=== PATIENT | female | born 1970 | race Caucasian/White ===

== ENCOUNTER 2023-05-10 09:00 | Outpatient (CLI) | payer BC, SELFPAY ==
--- NOTE | 2023-05-10 09:03 | XR_ITS ---
FINAL REPORT CLINICAL HISTORY: Pain in 2nd (cyst) & 4th digit. Upcoming biopsy on 4th digit soon. FINDINGS: Right foot Three views were obtained. There is no acute fracture or dislocation. There are mild degenerative changes. Plantar calcaneal spur is identified. No soft tissue abnormality is identified. IMPRESSION: No acute process. Reviewed, Interpreted and Dictated by Inderjit Barr III, MD Transcribed by Luana Kent Authenticated and [facility]
== END 2023-05-10 23:59 ==
PROVIDERS: PCP Physician Assistant; Visit Provider Podiatrist
DX: M79.671 Pain in right foot (principal)
CPT/HCPCS: 73630

== ENCOUNTER 2023-05-18 10:41 | Day surgery (SDC) | payer BC, SELFPAY ==
[2023-05-17 13:08] VITALS: BMI 37.8
[2023-05-18] VITALS (8 sets, daily range): BP systolic 96–154; BP diastolic 58–101; PULSE 81–106; RESP 13–18; TEMP 36.3–36.9; O2SAT 92–97
[2023-05-18] MEDS: LACTATED RINGERS 1000ML 1,000 ML 25 ML IV (11:15)
--- NOTE | 2023-05-18 12:03 | EXP.ANES.CKL ---
[facility] Disclaimer: The information contained in this section may have been updated after the patient was seen, as this information can be updated by other users. Medical History Anxiety Asthma delivery delivered Depression Hypertension Hypothyroidism Surgical History H/O gastric sleeve History of cholecystectomy Family History Father Cancer Thyroid disorder Hypertension Mother Hypertension Legally blind Diabetes Histoplasmosis Grandfather Cancer Social History Smoking Status: Never smoker alcohol intake: current substance use type: denies use current occupational status: employed Travel in the last 8 weeks: None household members: spouse housing: house marital status: number of children: 3 [facility] Anesthesia Checklist Patient Identification Patient Identification: Arm Band and Verbal (Name & ) Structural Data Admitted From: Home Planned Operative Procedure/s: Cyst excision foot Consent for Planned Operative Procedure(s) Verified: Yes NPO Status Verified Time NPO: 00:00 Additional verifications Anesthesia Reactions: No Hx Blood Transfusions: No Airway Assessment Mallampati Score:: Class II C-Spine Mobility Assessed: Yes TMJ Mobility Assessed: Yes Dentition: Good Dentition Neurological Assessment Level of Consciousness: Awake Hx Seizures: No Numbness or tingling in extremities: No Anesthesia Plan Anesthesia Risk discussed: Yes Anesthesia Plan: Verified ASA Class: II Anesthesia Type: General
[2023-05-18] MEDS: BUPIVACAINE 0.5% 30ML VIAL 150 MG (12:35)
[2023-05-18] MEDS: CEFAZOLIN SODIUM 2 GM in 0.9 % SODIUM CHLORIDE 100 ML IV (12:52)
--- NOTE | 2023-05-18 13:08 | EXP.ANES.I ---
[facility] Anesthesia Record Part I Anesthesia Record I Intake, IV Amount: 800 Hydration: Adequate Estimated blood loss (mL): 10 Urine output (mL): 0 Blood Pressure: 96/70 SaO2: 92 Pulse Rate: 106 Airway Patency: Patent Respiratory Rate: 13 Temperature: 97.4 F Patient is:: Drowsy and Oral/Nasal airway Stable to PACU at:: 13:05
--- NOTE | 2023-05-18 13:11 | EXP.OP.NOTE ---
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 Was referred for further evaluation and biopsy of the right fourth toe. Discussed removing the right fourth toenail to do underlying skin biopsy of abnormal lesion. Patient also reports recurrent mucoid cyst which has been popped and aspirated over the last 2 years and has recurred. Discussed high recurrence rate with the mucoid/ganglionic type cysts. Also discussed surgical excision of the mucoid cyst from the right second toe. Conservative treatment discussed but has been exhausted. Patient has pain with shoe gear. We discussed surgery. All risks and benefits were discussed including but not limited to: recurrence of the mass/lesion, nail abnormalities, pain with the toenail, need for nail removal permanently, damage to blood vessels and nerves, bleeding, infection, wound complications, need for further surgery, prolonged swelling of the toe/extremity, prolonged pain, RSD/CRPS, DVT, and anesthetic complications. No guarantees were given. All questions fully answered. The patient verbalized understanding and agreed to proceed with surgery. Consent was obtained. Operative findings:: Right dorsal second toe DIPJ mucoid cyst approximately 0.5 cm round. Cyst was jelly filled. It did not extend into the joint. Right fourth toenail dystrophy. On the lateral border of the toenail there was some irregularity and discoloration. Some thickened callus skin at the distal lateral nail border. Once the toenail was removed there was some brown irregularity to the distal lateral nail bed. Punch biopsy performed. No purulence, drainage or signs of infection. Operative note:: On this date and time the patient was deemed an appropriate surgical candidate. With informed consent time patient was transferred from the preoperative holding area to the operating theater placed on table in a normal supine position. Right lower extremity was prepped and draped in normal sterile fashion. No tourniquet utilized. IV Ancef infused. 10cc 0.5% marcaine plain given as digital block. Right 2nd toe excision of cyst: Attention was directed to the dorsal right second toe where a 0.5 cm round cyst was noted over the DIPJ. 15 blade used to make full-thickness her cane type excisional incision and excise the cyst. It did not extend to the bone. This is sent to pathology. Wound flushed. Skin reapproximated with nylon. Right 4th toenail avulsion: A Tomasa drain was used around the fourth toe as a tourniquet. Attention was then directed to the fourth toe where irregularity was noted. Coker elevator was used to lift the nail from the nailbed. The entire toenail was removed without complication. It was sent for path. Right 4th toe punch biopsy: Next a 3mm punch biospy was used to remove the entire lesion from the distal lateral nail bed. There was some thickened callused skin at the distal lateral nail fold. 15' blade use to make a separate incision 1cm along the area beside the punch biopsy site, extending partial thickness thru skin only 0.2cm deep. No signs of infection. The thickened irregular callus skin was removed and sent along with the punch biopsy to pathology. Wound was flushed. The tourniquet was released and immediate hyperemic response was noted to the digits. 10 cc half percent Marcaine plain was infiltrated to the right ankle post procedure. The patient was awoken from anesthesia and transferred to recovery with vital signs stable and neurovascular status intact. She appeared to tolerate procedure and anesthesia well without complications. Plan: Ok to discharge home today when vss. Patient is to maintain dressing clean dry and intact. Elevate on two pillows. Weight bearing as tolerated to right foot and foot short fracture boot. Follow up in one week as previously scheduled for incision check. Condition: stable Disposition: same day Specimens:: Right 2nd toe mucoid cyst Right 4th toenail Right 4th toe skin lesion Complications:: None
--- NOTE | 2023-05-19 15:11 | P.PNANES_ITS ---
[facility] Anesthesia Record Part II Anesthesia Record Part II Discharge Time: 13:35 Destination: Surgical Day Care (OP Surgery) PACU nurse assessment reviewed?: Yes Patient Condition:: Good Anesthesia Complications:: None Swallowing reflex intact?: Yes Airway Patency: Patent Cyanosis?: No Blood Pressure: 153/73 SaO2: 95 Respiratory Rate: 15 Pulse Rate: 84 Temperature: 97.9 F Mental Status: Alert & Oriented Pain level:: 0 Nausea and/or vomitting:: None Intake, IV Amount: 0 Hydration: Adequate
[2023-05-19 15:12] VITALS: BP 153/73; PULSE 84; RESP 15; TEMP 36.6; O2SAT 95
== END 2023-05-18 14:00 | disposition home or self-care (01) ==
PROVIDERS: PCP Physician Assistant; Visit Provider Podiatrist
PROC: (CPT 11420; principal; 2023-05-18 12:15)
DX: M71.38 Other bursal cyst, other site (principal); L60.3 Nail dystrophy; I10 Essential (primary) hypertension
CPT/HCPCS: 11420; 11730; 11104; 96374; J0690